=== PATIENT | male | born 1950 ===

== ENCOUNTER → 2016-10-01 08:34 | Day surgery (SDC) | payer MEDICARE ==
[~2016-10-01 08:34] MED LIST: Buffered Lidocaine 1% SYR 3ML* 3 ML/SYR SYRINGE INTRADERM ONE; Buffered Lidocaine 1% SYR 3ML* 3 ML/SYR SYRINGE ONE; Bupivacaine 0.5% W/EPI SDV* 30 ML VIAL ONE; Dexamethasone IV* 4 MG/ML 1 ML (4 MG) IV SLOW PU ONE; Dexamethasone IV* 4 MG/ML 1 ML (4 MG) ONE; Famotidine IV* 10 MG/ML 2 ML (20 mg) IV ONE; Famotidine IV* 10 MG/ML 2 ML (20 mg) ONE; Ketorolac INJ* 30 MG/ML 1 ML VIAL ONE; Lidocaine 1% INJ* 10 MG/ML 30 ML SDV ONE; Lidocaine 2% MPF* 2 ML VIAL ONE; Midazolam* 1 MG/ML 2 ML VIAL (2 MG) ONE; Ondansetron INJ* 2 MG/ML VIAL IV PRN; Ondansetron INJ* 2 MG/ML VIAL ONE; Propofol* 10 MG/ML 20 ML BTL IV PUSH ONE; ceFAZolin 2 GM PREMIX (*) 2 GM/50 ML BAG IVPB ONE; fentaNYL* 50 MCG/ML 2 ML VIAL (100 MCG VIAL) IV PRN; fentaNYL* 50 MCG/ML 2 ML VIAL (100 MCG VIAL) ONE; oxyCODONE/Acetamin 5/325 MG* TAB PO PRN
[2016-10-01 11:45] VITALS: BP 132/77
--- NOTE | 2016-10-01 20:29 | OP ---
DATE OF OPERATION: 10/01/16 - [facility] DATE OF : 52 SURGEON: Nirav Mott MD NUCLEAR EQUIPMENT SALES ENGINEER: MICHAEL Staton ANESTHESIOLOGIST: Dr. Sosa. ANESTHESIA: LMAC anesthesia. PRE-OP DIAGNOSIS: Right inguinal hernia. POST-OP DIAGNOSIS: Right inguinal hernia. OPERATIVE PROCEDURE: Open right inguinal hernia repair with mesh. DESCRIPTION OF PROCEDURE: The patient was supine on the operating room table. After adequate intravenous sedation, compression stockings, Na Hugger warmer, and intravenous antibiotics, the right groin was clipped and prepped with antiseptic, and draped in a sterile fashion. Local infiltrative anesthesia was administered. Approximately 2.5 inch incision was created and dissection carried down to the external oblique, which was opened in the direction of its fibers. Cord structures were circled with Alzada drain, tented upward and indirect space hernia was readily identified, dissected free and reduced and a cone mesh plug was placed into the internal ring. This was secured with 2-0 Polysorb. A second piece of mesh was placed over the inguinal floor, sutured at the tubercle. Tails were split, brought around the cord structures, and tacked down laterally. External oblique was closed over top with 2-0 Polysorb, Zaida's with 3-0 Polysorb, and skin with 4-0 Surgipro followed by sterile dressing. He tolerated the procedure well and was brought to recovery in good condition. No complications. No drains. No pathologic specimens. Sponge and instrument counts correct. Estimated blood loss is less than 10 mL. [id number]/CPS #: [id number] MTDD
== END | disposition home or self-care (01) ==
LOC: OR 08:34
PROVIDERS: ATTEND Surgery
DX: K40.90 Unilateral inguinal hernia, without obstruction or gangrene, not specified as recurrent (principal)
CPT/HCPCS: C1781; J0690; J1100; J1885; J2250; J2405; J2704; J3010

== ENCOUNTER 2019-04-10 13:01 | Emergency (ER) | payer MEDICARE ==
--- NOTE | 2019-04-10 14:34 | UC ---
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 He tells me that today he was working on a tractor and a stella swung and impacted his right hand. He had some bleeding from the area and immediate pain. Since that time has developed swelling. Denies numbness, tingling, or decreased ROM. - History Of Current Complaint Stated Complaint: RT HAND INJ Time Seen by Provider: 04/10/19 14:34 Hx Obtained From: Patient Onset/Duration: Sudden Onset Severity Initially: Moderate Severity Currently: Moderate Pain Intensity: 5 Pain Scale Used: 0-10 Numeric - Allergies/Home Medications Allergies/Adverse Reactions: Allergies Allergy/AdvReac Type Severity Reaction Status Date / Time streptomycin Allergy See Comment Verified 04/10/19 14:42 bee Allergy Edema Uncoded 04/10/19 14:42 PMH/Surg Hx/FS Hx/Imm Hx - Additional Past Medical History Additional PMH: None - Surgical History Surgical History: Yes Surgery Procedure, Year, and Place[place] 2007[place] [facility] [place] Social History Lives: With Family Alcohol Use: Daily Alcohol Amount: 1 DAILY Substance Use Type: None Smoking Status (MU): Former Smoker Amount Used/How Often: SMOKED A PIPE OFF AND ON X 30 YEARS Have You Smoked in the Last Year: No When Did the Patient Quit Smoking/Using Tobacco: 4-5 YEARS AGO Review of Systems All Other Systems Reviewed And Are Negative: Yes Constitutional: Positive: Negative Skin: Positive: Bruising - right hand Respiratory: Positive: Negative Cardiovascular: Positive: Negative Neurovascular: Positive: Negative Musculoskeletal: Positive: Other: - Right hand pain Neurological: Positive: Negative Psychological: Positive: Negative Physical Exam - Summary Physical Exam Summary: GENERAL: NAD. WDWN. No pain distress. SKIN: See MSK CHEST: No accessory muscle use. Breathing comfortably and in no distress. CV: Pulses intact radial and ulnar. Cap refill <2seconds MSK: RIGHT HAND: Dorsal aspect over 3rd MC with moderate edema - 5mm superficial abrasion. FROM at right wrist and all digits. Strength 5/5 including brush clearer surveying strength. NEURO: Alert. Sensations intact hand and all fingers. PSYCH: Age appropriate behavior. Triage Information Reviewed: Yes Vital Signs: Vital Signs: Temp Pulse Resp BP Pulse Ox 97.2 F 69 16 133/72 97 04/10/19 14:31 04/10/19 14:31 04/10/19 14:31 04/10/19 14:31 04/10/19 14:31 Vital Signs Reviewed: Yes Hand/Wrist Course/Dx - Course Course Of Treatment: XR: IMPRESSION: 1. Mild dorsal soft tissue swelling about the mid hand. 2. No fracture or traumatic malalignment. 3. Mild osteoarthropathy of the DIPs Discussed results with pt. The wound was cleansed and a dry pressure dressing was placed. His last tetanus was in 2015. Advised to RICE and take ibuprofen for discomfort. F/u prn - Differential Dx/Diagnosis Provider Diagnosis: Contusion of right hand Discharge - Sign-Out/Discharge Documenting (check all that apply): Patient Departure All imaging exams completed and their final reports reviewed: Yes - Discharge Plan Condition: Stable Disposition: HOME Patient Education Materials: Contusion in Adults (ED) Referrals: No Primary Care Phys,NOPCP [Primary Care Provider] - Additional Instructions: If you develop a fever, shortness of breath, chest pain, new or worsening symptoms - please call your PCP or go to the ED immediately. 1) Your X-Ray was normal today and there is no broken bone 2) Please rest and apply ice to your hand to reduce pain and swelling 3) Your tetanus shot was updated today - Billing Disposition and Condition Condition: STABLE Disposition: Home - Attestation Statements Provider Attestation: I was available for consult. This patient was seen by the [facility]. The patient was not presented to, seen by, or examined by me. -Mechelle
[2019-04-10 14:41] VITALS: BP 133/72
[2019-04-10] MEDS ORDERED: Tetan/Diph/Pertus SYR(Tdap)* 0.5 ML SYR(BOOSTRIX) use SYR IM ONE (14:51)
== END 2019-04-10 15:10 | disposition home or self-care (01) ==
LOC: UCEAST 13:01
DX: S60.221A Contusion of right hand, initial encounter (principal); W22.8XXA Striking against or struck by other objects, initial encounter; Y93.89 Activity, other specified; Y92.79 Other farm location as the place of occurrence of the external cause; Y99.0 Civilian activity done for income or pay; Z87.891 Personal history of nicotine dependence
CPT/HCPCS: 90715; 99212; G0463